=== PATIENT | female | born 1990 | race Caucasian/White ===

== ENCOUNTER 2022-09-04 14:17 | Emergency (ER) | payer SELFPAY ==
[2022-09-04 14:22] VITALS: BP 147/82; PULSE 88; RESP 20; TEMP 36.7; O2SAT 97
[2022-09-04 14:30] VITALS: BP 147/82; PULSE 88; RESP 20; TEMP 36.7; O2SAT 97
--- NOTE | 2022-09-04 14:47 | ED.URI ---
HPI - URI/Sore Throat General Chief Complaint: Upper Respiratory Infection Stated Complaint: congestion, light headed, touble hearing Time Seen by Provider: 09/04/22 14:47 History of Present Illness HPI Narrative: patient presents with bilateral ear pain and sinus pressure for the past 2 days no fever no cough takes zyrtec daily Related Data Allergies Allergy/AdvReac Type Severity Reaction Status Date / Time No Known Allergies Allergy Verified 09/04/22 14:29 Review of Systems Review of Systems: CONSTITUTIONAL: Denies fever, chills, or sweats. EYES: Denies visual changes, redness, or discharge. ENT: Denies rhinorrhea, congestion, sore throat, or otalgia. CARDIOVASCULAR: Denies chest pain, palpitations, or edema. RESPIRATORY: Denies cough or dyspnea. GASTROINTESTINAL: Denies abdominal pain, nausea, vomiting, or diarrhea. GENITOURINARY: Denies dysuria or hematuria. SKIN: Denies rash or itching. MUSCULOSKELETAL: Denies back pain, joint pain, or myalgia. NEUROLOGIC: Denies headache, numbness, or weakness. PSYCHIATRIC: Denies anxiety or depression. PMFSH Comments At time of signature, agree with nursing past medical, surgical, social and family history. There is no relevant family history pertinent to the presenting complaint Exam Narrative: GENERAL: Well-appearing, well-nourished, and in no acute distress. HEAD: Normocephalic, atraumatic. EYES: PERRLA and EOMI. ENT: Nares clear, no rhinorrhea or epistaxis. Mucous membranes moist. Moderate bilateral erythema to both ear canals with TM dullness. Mild maxillary sinus pressure and tenderness NECK: Supple. CHEST: Clear to auscultation. No respiratory distress. HEART: Regular rate and rhythm. No murmur heard. Normal peripheral pulses. ABDOMEN: Soft, nontender, nondistended, normal active bowel sounds. EXTREMITIES: Normal range of motion. No edema. SKIN: Warm, dry, no rash. NEURO: No focal deficits. Alert and oriented x3. [place] Coma Scale Eye Opening: Spontaneous 4 [place] Coma Scale Motor: Obeys Commands 6 [place] Coma Scale Verbal: Oriented 5 [place] Coma Scale Total 15 Course Course Level of Care: Express Care Visit Vital Signs Vital signs: Vital Signs Temperature 36.7 C 09/04/22 14:22 Pulse Rate 88 09/04/22 14:22 Respiratory Rate 20 09/04/22 14:22 Blood Pressure 147/82 H 09/04/22 14:22 Pulse Oximetry 97 09/04/22 14:22 Oxygen Delivery Room Air 09/04/22 14:22 Temperature 36.7 C 09/04/22 14:30 Pulse Rate 88 09/04/22 14:30 Respiratory Rate 20 09/04/22 14:30 Blood Pressure 147/82 H 09/04/22 14:30 Pulse Oximetry 97 09/04/22 14:30 Oxygen Delivery Room Air 09/04/22 14:30 Please GIO schedule a followup visit with your personal physician for further evaluation and treatment. Including recheck and discussion of your blood pressure. If your symptoms persist, change or worsen significantly before you can contact your personal physician then please, without delay, go to the emergency department for further evaluation MDM - URI/Sore Throat Differential Diagnosis Differential diagnosis: Likely upper respiratory infection, croup, otitis media, sinusitis, viral infection, bronchitis, influenza and pharyngitis Discharge Plan Discharge Clinical Impression: Upper respiratory infection, Otitis media Patient Disposition: Home, Self-Care Condition: Stable Instructions: Antibiotic Form, Ear Infection (GEN) Additional Instructions: Take medications as prescribed. return for worsening signs or symptoms return if facial pain increases, fever, worsening symptoms, shortness of breath, chest pain, productive cough or difficulty swallowing) and agrees with the plan. congestion - flonase am and pm for chronic sinus congestion or prolonged symptoms of sinusitis (takes several days to work). one to three times a day of irrigation of sinus with saline spray, ocean nasal spray or ne
== END 2022-09-04 14:48 | disposition home or self-care (01) ==
PROVIDERS: Emergency Provider Nurse Practitioner Family; PCP Internal Medicine
DX: J06.9 Acute upper respiratory infection, unspecified (principal); H66.93 Otitis media, unspecified, bilateral
CPT/HCPCS: 99213; G0463

== ENCOUNTER 2023-04-22 13:27 | Observation (INO) | payer OTHER, SELFPAY ==
[2023-04-22] VITALS (9 sets, daily range): BP systolic 117–158; BP diastolic 55–78; PULSE 85–98; RESP 16–20; TEMP 36.8–37.1; O2SAT 99–100
--- NOTE | 2023-04-22 12:46 | ADMGEN ---
This patient, Coral Leung, was admitted to Medical Room 255-01. Patient/family oriented to hospital policies and general routines including ID bracelet, bed and alarms, visiting hours, pain management, procedures, bathroom and other care routines, personal items, smoking policy, room service/diet, and visiting hours. Information on how to activate the Rapid Response Team has been discussed. Patient/Family are encouraged to report perceived risks to care and to ask questions if they do not understand what they are told or what they should do.
[2023-04-22 13:49] LABS: Mean Corpuscular HGB Conc 28.3 g/dl (32-36); Mean Corpuscular Hemoglobin 27.1 pg (26-34); Mean Corpuscular Volume 95.7 fl (80-100); Mean Platelet Volume 9.6 fl (7.4-10.4); Platelet Count Result 348 k/mm3 (150-375); Red Blood Count 1.88 M/mm3 (4.2-5.4); White Blood Count 8.2 K/mm3 (4.5-10.0)
[2023-04-22 13:57] LABS: Anion Gap 6 mmol/L (8-16); Blood Urea Nitrogen 12 mg/dL (7-17); Calcium 8.6 mg/dL (8.4-10.2); Carbon Dioxide 21 mmol/L (22-30); Chloride 107 mmol/L (98-107); Estimated Glomerular Filt Rate > 60; Glucose 135 mg/dL (65-110); Potassium 3.8 mmol/L (3.4-5.0); Sodium 134 mmol/L (137-145)
[2023-04-22 13:58] LABS: Hemoglobin 5.1 g/dL (12.0-15.0)
[2023-04-22] MEDS: SODIUM CHLORIDE 0.9% IV 250 ML 30 ML IV CONT (16:14)
[2023-04-22] MEDS: ACETAMINOPHEN 500 MG TABLET 1000 MG PO (17:50)
[2023-04-23 00:39] LABS: Hematocrit 24.5 % (37.0-47.0); Hemoglobin 7.4 g/dL (12.0-15.0)
[2023-04-23 05:57] LABS: Hematocrit 25.4 % (37.0-47.0); Hemoglobin 7.6 g/dL (12.0-15.0)
[2023-04-23 06:00] VITALS: BP 118/69; PULSE 83; RESP 20; TEMP 36.9; O2SAT 100
--- NOTE | 2023-04-23 10:33 | PM.IMHP ---
H&P: HPI History of Present Illness Date/Time: 04/23/23 10:33 Chief Complaint: fatigue Narrative: 32-year-old female with severe anemia. She had a hemoglobin of 5 yesterday. She was admitted to the hospital and given 2 units of packed red blood cells. She tolerated it well. She was given precautions. She is asked to follow up quickly for management of her heavy vaginal bleeding. She denies any chest pain shortness of breath. She denies any nausea, vomiting, fever, chills. She denies any excessive vaginal bleeding at this time. She is taking combined hormonal contraceptive pills. This should be switched To something safer due to the risk associated with this and someone of her weight. to discharge home today Review of Systems Review of Systems: All systems reviewed & are unremarkable except as noted in HPI and below Constitutional: Constitutional: Denies chills, Denies fatigue, Denies fever(s) and Denies weakness Eyes: Eyes: Denies blurry vision, Denies change in vision, Denies loss of peripheral vision, Denies loss of vision, Denies other visual disturbances and Denies eye pain ENT: Denies vertigo, Denies dizziness, Denies hearing loss, Denies mouth pain, Denies nasal obstruction, Denies neck mass and Denies neck pain Cardiovascular: Cardiovascular: Denies chest pain, Denies diaphoresis, Denies syncope, Denies leg edema and Denies dyspnea Respiratory: Respiratory: Denies chest congestion, Denies cough, Denies hemoptysis, Denies dyspnea and Denies wheezing Gastrointestinal: Gastrointestinal: Denies abdominal pain, Denies constipation, Denies diarrhea, Denies nausea and Denies vomiting Genitourinary: Genitourinary: Denies hematuria, Denies change in libido, Denies nocturia, Denies genital lesions, Denies flank pain and Denies urinary urgency Musculoskeletal: Musculoskeletal: Denies abnormal gait, Denies back pain, Denies myalgias, Denies arthralgias, Denies joint swelling, Denies muscle weakness and Denies neck pain Integumentary/Breasts: Skin/Breast: Denies swelling, Denies breast pain, Denies breast mass, Denies dry skin, Denies nipple discharge, Denies unusual bruising and Denies jaundice Neurologic: Denies Neuro-related abnormal movements, Denies Abnormal speech present, Denies abnormal gait, Denies behavioral changes, Denies confusion, Denies vertigo, Denies dizziness, Denies syncope, Denies loss of vision, Denies memory loss, Denies convulsions and Denies weakness Psychiatric: Psychiatric: Denies abnormal sleep pattern, Denies behavioral changes, Denies change in libido, Denies confusion, Denies depression, Denies anhedonia and Denies memory loss Endocrine: Endocrine: Reports no additional endocrine complaints, Denies change in libido and Denies fatigue Hematologic/Lymphatic: Hematologic/Lymphatic: Reports no additional hematologic/lymphatic complaints Allergic/Immunologic: Allergic/Immunologic: Reports no additional allergic/immunologic complaints and Denies wheezing PMFSH Social History Social History Smoking status: Never smoker Alcohol intake: never Substance use: never Lack of Transportation: YES Lack of Food: Never True Current Housing: I Have Housing Concerned About Future Housing: No Difficulty Paying Gas/Electric Bills: No Difficulty Paying for Meds: No Currently Unemployed: No Education: High School Diploma/GED Difficulty w/ Childcare or Family Care: No Spiritual care concerns: No Meds Home Medications and Allergies Home Medications Medication Instructions Recorded Confirmed Type ferrous sulfate 325 mg (65 mg 325 mg PO DAILY 04/22/23 04/22/23 History iron) tablet [id number]-[id number] 1 tablet PO DAILY 04/22/23 04/22/23 History fumarate 18 mg-folic acid 400 mcg tablet (One-A-Day Women's Complete) Allergies Allergy/AdvReac Type Severity Reaction Status Date / Time No Known Allergies Allergy Verified 09/04/22 14:29 Vital Signs Vital Sign
--- NOTE | 2023-05-08 21:21 | PM.OBTRLD ---
OB - Triage/Final Diagnosis Visit Information Comments/Additional reasons for admission: I have assessed the risk for this patient, Coral Leung, and determined that she would benefit from observation care. Evaluation Laboratory results: Laboratory Tests 04/22/23 04/23/23 04/23/23 13:38 00:34 05:17 WBC 8.2 RBC 1.88 L Hgb 5.1 L* 7.4 L 7.6 L Hct 18.0 L* 24.5 L 25.4 L MCV 95.7 MCH 27.1 MCHC 28.3 L RDW 17.0 H Plt Count 348 MPV 9.6 Sodium 134 L Potassium 3.8 Chloride 107 Carbon Dioxide 21 L Anion Gap 6 L BUN 12 Creatinine 0.90 Estim Creat Clear Calc Not Reportable Estimated GFR > 60 Glucose 135 H Calcium 8.6 Blood Type A Positive Antibody Screen Negative Crossmatch See Detail Final Diagnosis (1) Menorrhagia: Code(s): N92.0 - Excessive and frequent menstruation with regular cycle Status: Acute
== END 2023-04-23 12:00 | disposition home or self-care (01) ==
PROVIDERS: Admitting Provider Obstetrics & Gynecology; PCP Internal Medicine; Visit Provider Obstetrics & Gynecology
DX: D64.9 Anemia, unspecified (principal); N92.0 Excessive and frequent menstruation with regular cycle; Z79.3 Long term (current) use of hormonal contraceptives; Z79.899 Other long term (current) drug therapy
CPT/HCPCS: 36415; 36430; 80048; 85014; 85018; 85027; 86850; 86900; 86901; 86923; A9270; G0378; J7050; P9016

== ENCOUNTER 2023-06-10 13:59 | Outpatient (CLI) | payer OTHER, SELFPAY ==
[2023-06-10 14:39] LABS: Hemoglobin 11.9 g/dL (12.0-15.0)
== END 2023-06-10 14:00 | disposition home or self-care (01) ==
PROVIDERS: Anesthesiology; PCP Internal Medicine; Visit Provider Obstetrics & Gynecology
DX: Z01.818 Encounter for other preprocedural examination (principal); N92.0 Excessive and frequent menstruation with regular cycle
CPT/HCPCS: 36415; 85014; 85018

== ENCOUNTER 2023-06-15 00:32 | Day surgery (SDC) | payer OTHER, SELFPAY ==
[2023-06-08 14:53] VITALS: BMI 42.9
--- NOTE | 2023-06-08 15:18 | PC.NURSE ---
Discussed pt's daily Iron usage and hx bleeding/recent blood transfusions/most recent H&H with Dr. Gillette-pt to continue iron until DOS.
--- NOTE | 2023-06-08 15:20 | PC.NURSE ---
Report to the Outpatient Waiting Room, entrance under the green pavilion located off [facility], at 0645 on 06/15/23. Planned Procedure Time: 0845. Time changes happen often and if your time is changed the preop area will call you the afternoon before. - You and your visitor will be asked to self-screen and do not enter if you have any COVID symptoms. - A mask is optional within the hospital at this time. Patients may have clear liquids (water, carbonated beverages, clear teas, apple juice) until 3 hours prior to surgery with a maximum of 20 ounces. - No food from midnight until time of surgery. Take the following medications with a SIP of water the morning of surgery: NONE DO NOT STOP ANY OF YOUR OTHER PRESCRIPTION MEDICATIONS PRIOR TO SURGERY. CONTINUE IRON-TAKE DOSE 06/14/23. Medications to discontinue per physician NONE Please no make-up, nail turkmen, hairspray, perfume, deodorant, or body powder the day of surgery. No jewelry (including any body piercings) or valuables the day of surgery, leave them at home. Please take a shower or bath the night before, or the morning of, surgery with an antibacterial soap. Wear comfortable, loose fitting clothing. - Jewelry must be removed prior to entering the operating room. Rings and piercings that are not removed may be cut off. - The hospital will not accept responsibility for valuables. - Please leave all valuables, including medications, at home the day of surgery. If you are going home after surgery, a licensed local delivery driver must drive you home. - NO public transportation without another adult if you receive anesthesia. - We recommend that an adult stay with you for 24 hours following discharge. - We also recommend that you do not drive, make important decision, drink alcoholic beverages, or take any drugs that were not prescribed by your health care provider for at least 24 hours after your discharge time. Follow any additional instructions given to you from your surgeon. If you or anyone in your household have experienced Covid symptoms in the past week, please notify your surgeon or the nurse liaison at the phone number below for possible testing. Telephone instructions given to patient and asked if any additional questions and then verbalized understanding. Patient advised to call surgeon office or pre surgery nurse liaison [phone] if any additional questions.
[2023-06-15] VITALS (8 sets, daily range): BP systolic 113–139; BP diastolic 63–78; PULSE 55–75; RESP 14–20; TEMP 36.6–37; O2SAT 98–100; BMI 42.0
[2023-06-15] MEDS: ACETAMINOPHEN 500 MG TABLET 1000 MG PO (06:26)
[2023-06-15] MEDS: SCOPOLAMINE 1.5 MG PATCH TRANSDERM (06:27)
[2023-06-15] MEDS: LACTATED RINGERS 1,000 ML 30 ML IV CONT ×2 (06:27→09:05)
[2023-06-15] MEDS: KETOROLAC 15 MG/ML VIAL (*BKC) IV PUSH (06:28)
--- NOTE | 2023-06-15 06:50 | WPDANESEPPF ---
Anes - Initial Pre Proc Eval Procedure: Operation Date: 06/15/23 07:30 Proposed Procedures p Hysteroscopy with Leanne Endometrial Ablation - Stanislaw Mcmullen MD s Laparoscopic Bilateral Tubal Ligation with Fulguration of Oviducts - Stanislaw Mcmullen MD Date/Time: 06/15/23 06:50 Surgeon: Stanislaw Mcmullen MD Pre Op Diagnosis: Menorrhagia, Desires Sterilization Patient Data Age: 33 Gender: F Height: 1.63 m Weight: 111.1 kg Last Vital Signs Temp 36.6 C 06/15/23 06:05 Pulse 72 06/15/23 06:05 Resp 16 06/15/23 06:05 BP 139/78 06/15/23 06:05 Pulse Ox 100 06/15/23 06:05 O2 Del Method Room Air 06/15/23 06:05 Allergies Allergy/AdvReac Type Severity Reaction Status Date / Time No Known Allergies Allergy Verified 06/15/23 06:33 Home Medications Medication Instructions Recorded Confirmed Type ferrous sulfate 325 mg (65 mg 325 mg PO DAILY 04/22/23 06/15/23 History iron) tablet [id number] 1 tablet PO DAILY 04/22/23 06/15/23 History fumarate 18 mg-folic acid 400 mcg tablet (One-A-Day Women's Complete) cetirizine 10 mg capsule (Zyrtec) 10 mg PO DAILY 06/08/23 06/15/23 History Patient hx anesthesia problems: none Family hx anesthesia problems: none Results Review: All pre-operative results and documents have been reviewed as part of the pre-operative evaluation. [facility] Social History Social History Smoking status: Never smoker Second hand tobacco smoke exposure: Yes (friends) Alcohol intake: never Alcohol use details: very rarely Substance use: never Lack of Transportation: YES Lack of Food: Never True Current Housing: I Have Housing Concerned About Future Housing: No Difficulty Paying Gas/Electric Bills: No Difficulty Paying for Meds: No Currently Unemployed: No Education: High School Diploma/GED Difficulty w/ Childcare or Family Care: No Living arrangements: with family Spiritual care concerns: No Anes - Eval Final PreProcedure Day of Procedure 06/15/23 06:50 Patient weight: morbidly obese Heart: regular rate and rhythm Lungs: clear to auscultation Airway: Mallampati scale class III Neurological: alert and oriented Last oral intake: >/= 8 hours ASA classification: III Emergent: no Anesthetic plan: proceed Anesthesia type and monitoring: general ETT and standard monitoring Results Review: All pre-operative results and documents have been reviewed as part of the pre-operative evaluation. Informed Consent: The patient's anesthetic plan and its attendant risks and benefits were discussed with the patient/family/POA. Questions were solicited and answers provided to the satisfaction of the patient/family/POA.
--- NOTE | 2023-06-15 07:20 | WPDHPUPDATE1 ---
History and Physical Update Update Date/Time: 06/15/23 07:20 History and Physical has been reviewed, including an updated exam of the patient. There are NO changes in the patient's condition. Risks, benefits, and alternatives have been discussed and questions answered. Patient agrees to proceed with procedure.
--- NOTE | 2023-06-15 09:22 | P.OP_ITS ---
Procedure Note - Detailed Date of Procedure 06/15/23 Pre-op Diagnosis Menorrhagia, Desires Sterilization Post-op Diagnosis Same Procedure Performed Laparoscopic bilateral salpingectomy with endometrial ablation and hysteroscopy. Surgeon Stanislaw Mcmullen MD Anesthesia General Indications Menorrhagia, female sterilization Findings Enlarged uterus with multiple large fibroids, normal endometrial cavity, normal- appearing ovaries, normal-appearing vulva , vagina and cervix. Description of Procedure Patient was taken the operating room. She has prepped draped in the dorsal lithotomy position after induction of general anesthesia. A 5 mm abdominal incision was made in left upper quadrant of the abdomen with scalpel. A 5 mm trocars inserted the intra-abdominal cavity under direct visualization of the scope. Pneumoperitoneum was achieved. A 5 mm periumbilical incision was made using a scalpel on the abdominal scan. A 5 mm trocar was inserted the intra- abdominal cavity under visualization of the scope. A 5 mm incision made left lower quadrant of the abdomen. A 5 mm trocar was inserted the intra-abdominal cavity and direct visualization of the scope. The bilateral fallopian tubes were removed. The paratubal tissue in the area of the uterus was grasped with the LigaSure cautery and transected after being cauterized. The paratubal tissue from the ovary to the uterine cornu was cauterized and transected with LigaSure cautery. This was all done in a bilateral fashion. The tube was transected at the area of the uterine cornua and the tubes was removed through the 5 mm trocar site. The pneumoperitoneum was reduced. The trocars were removed. The skin was closed with subcuticular 4 Monocryl and covered with Dermabond. Our attention was then turned to the endometrial ablation portion of the procedure. A speculum was placed in the vagina. The cervix was grasped with a tenaculum. The cervix was dilated to approximately 8 mm with Loo dilators. The hysteroscope was inserted. And the below findings were noted. All of the intrauterine surfaces were curettaged with a medium-size curette and the specimens were collected. Measurements of the cervix were taken using the uterine sound and the hysteroscope. The intrauterine cavity measurements were entered into the handpiece. The device was inserted into the intrauterine cavity and the array was expanded. The balloon cuff was inflated. When an adequate seal was formed the safety and energy cycles were initiated and completed. The array was collapsed, the balloon was deflated. The insert was withdrawn. The hysteroscope was reinserted and a well desiccated intrauterine cavity was observed. The patient was taken recovery room stable condition. Sponge lap and needle counts were correct x2. She tolerated the procedure well. Estimated Blood Loss -5.0 Urine Output -150.0 Pathology Yes Complications No immediate complications Condition Stable Disposition PACU
[2023-06-15] MEDS: ONDANSETRON INJ 4 MG/2 ML VIAL IV PUSH (09:55)
[2023-06-15] MEDS: oxyCODONE HCL (*CRX) 5 MG TAB IR PO (10:56)
== END 2023-06-15 11:00 | disposition home or self-care (01) ==
PROVIDERS: PCP Internal Medicine; Visit Provider Obstetrics & Gynecology
PROC: 0U5B8ZZ Destruction of Endometrium, Via Natural or Artificial Opening Endoscopic (ICD-10-PCS; CPT 58563; principal; 2023-06-15 07:30)
PROC: (CPT 58671; 2023-06-15 07:30)
DX: N92.0 Excessive and frequent menstruation with regular cycle (principal); Z30.2 Encounter for sterilization; D25.9 Leiomyoma of uterus, unspecified; N84.0 Polyp of corpus uteri; E66.01 Morbid (severe) obesity due to excess calories; Z68.41 Body mass index [BMI] 40.0-44.9, adult
CPT/HCPCS: 58563; 58661; 36415; 85014; 85018; 88302; 88305; A9270; J0330; J1100; J1885; J2250; J2371; J2405; J3010; J7120